=== PATIENT | male | born 1975 | race Caucasian/White ===

== ENCOUNTER 2018-09-09 13:48 | Emergency (ER) | payer SELFPAY ==
[~2018-09-09] VITALS: Ht 175.3 cm; Wt 100.0 kg
[2018-09-09 13:58] VITALS: TEMP 98.2
[2018-09-09] MEDS ORDERED: HUMIRA40 MG/0.1 SQ (14:16)
[2018-09-09 14:35] LABS: BASO % 0.4 % (0.0-2.0); EOS # 0.1 (0.0-0.7); EOS % 0.6 % (0-4.0); GRAN # 8.1 (1.4-6.5); HEMATOCRIT 47.7 % (42.0-52.0); HEMOGLOBIN 16.5 g/dl (13.5-18.0); LYMPH # 1.8 (1.2-3.4); LYMPH % 15.8 % (20.0-51.0); MEAN CELL VOLUME 90 fl (80.0-100.0); MEAN CORPUSCULAR HEMOGLOBIN 31 pg (27.0-31.0); MEAN CORPUSCULAR HGB CONC 35 g/dl (33.0-37.0); MEAN PLATELET VOLUME 9.7 fl (7.4-10.4); MONO # 1.1 (0.1-0.6); MONO % 9.9 % (1.7-9.3); PLATELET COUNT 218 K/mm3 (130-400); RED BLOOD COUNT 5.32 M/mm3 (4.20-5.60); REDCELL DISTRIBUTION WIDTH-CV 12.7 % (11.5-14.5)
[2018-09-09 14:47] LABS: ALBUMIN 4.2 gm/dL (3.5-5.0); C-REACTIVE PROTEIN 3.1 mg/dL (0.0-0.9); CALCIUM 9.3 mg/dL (8.4-10.2); CREATININE, serum 0.94 (0.66-1.25); TOTAL PROTEIN 7.7 gm/dL (6.4-8.2)
[2018-09-09 14:55] LABS: ERYTHROCYTE SEDIMENTATION RATE 5 mm/hr (0-15)
[2018-09-09] MEDS ORDERED: DOXYCYCLINE 10100 MG PO (15:02)
[2018-09-09 15:22] VITALS: BP 132/98; PULSE 100
== END 2018-09-09 15:23 | disposition home or self-care (01) ==
LOC: COL.ER 13:48
PROVIDERS: Physician Assistant
DX: M70.32 Other bursitis of elbow, left elbow (principal); Z88.0 Allergy status to penicillin